=== PATIENT | female | born 1995 | race Caucasian/White ===

== ENCOUNTER → 2020-07-24 13:43 | Outpatient (CLI) | payer BC, SELFPAY ==
--- NOTE | ~2020-07-24 | MR_ITS ---
EXAMINATION: MR knee RT wo con DATE: 07/24/2020 14:21 INDICATION: Right knee pain. TECHNIQUE: Magnetic resonance imaging (MRI) of the right knee was performed without intravenous contr ast. Sequences included axial PD-weighted FS FSE, coronal PD-weighted FSE and PD-weighted FS FSE, sag ittal PD-weighted FSE, and sagittal T2-weighted FS FSE. COMPARISON: Right knee radiographs 07/18/2020 FINDINGS: Medial compartment: Medial meniscus is normal. Medial compartment cartilage is normal. Lateral compartment: Lateral meniscus is normal. Lateral compartment cartilage is normal. Patellofemoral compartment: Patellar cartilage is normal. Trochlear cartilage is normal. Ligaments and tendons: Anterior cruciate ligament is thickened with increased signal intensity and some wavy fibers, consist ent with partial tear. Posterior cruciate ligament is normal. There is edema around the medial collat eral ligament, consistent with mild sprain. There is a sprain of fibular collateral ligament characte rized by thickening and increased signal intensity. There is mild patellar tendinopathy. Fluid: There is a large knee joint effusion. There is mild superficial infrapatellar bursitis. Osseous/other: There is bone marrow edema of lateral tibial condyle posteriorly, consistent with contusion. IMPRESSION: 1. Partial tear of anterior cruciate ligament. 2. Mild strains of medial collateral ligament and fibular collateral ligament. 3. Large knee joint effusion. Reviewed, dictated and finalized at location A. [employer] TECH[employer]ICIAN
== END ==
PROVIDERS: Visit Provider Orthopaedic Surgery
DX: M25.461 Effusion, right knee (principal); S83.411A Sprain of medial collateral ligament of right knee, initial encounter; S83.511A Sprain of anterior cruciate ligament of right knee, initial encounter; X58.XXXA Exposure to other specified factors, initial encounter
CPT/HCPCS: 73721

== ENCOUNTER → 2021-06-26 08:02 | Outpatient (CLI) | payer OTHER, SELFPAY ==
[2021-06-26 17:11] LABS: SARS-CoV-2 RNA PCR Negative
== END ==
PROVIDERS: PCP Family Medicine; Visit Provider Physician Assistant Medical
DX: R05.9 Cough, unspecified (principal); Z20.822 Contact with and (suspected) exposure to COVID-19
CPT/HCPCS: C9803; U0003; U0005

== ENCOUNTER 2022-08-04 11:07 | Outpatient (CLI) | payer OTHER, SELFPAY ==
[2022-08-04 19:40] LABS: Kit Draw Collected
== END 2022-08-04 11:08 | disposition home or self-care (01) ==
LOC: ANHGOSHLAB 11:08
PROVIDERS: PCP Family Medicine; Visit Provider Family Medicine
DX: E66.09 Other obesity due to excess calories (principal); Z68.36 Body mass index [BMI] 36.0-36.9, adult
CPT/HCPCS: 36415